=== PATIENT | male | born 1990 | race Caucasian/White ===

== ENCOUNTER 2022-12-30 15:46 | Emergency (ER) | payer SELFPAY ==
[2022-12-30 15:50] VITALS: BP 109/66; PULSE 74; RESP 18; TEMP 36.9; O2SAT 98
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
[2022-12-30] MEDS: KETOROLAC TROMETHAMINE 30 MG/ML VIAL IVP (16:54)
[2022-12-30] MEDS: METHYLPREDNISOLONE SOD SUCC PF 125 MG/2 ML VIAL IVP (16:55)
[2022-12-30] MEDS: OXYCODONE HCL/ACETAMINOPHEN 5MG/325MG 2 TAB PO (18:10)
== END 2022-12-30 18:10 | disposition home or self-care (01) ==
PROVIDERS: Emergency Provider Emergency Medicine
DX: S22.41XA Multiple fractures of ribs, right side, initial encounter for closed fracture (principal); S27.2XXA Traumatic hemopneumothorax, initial encounter; V86.59XA Driver of other special all-terrain or other off-road motor vehicle injured in nontraffic accident, initial encounter; F17.210 Nicotine dependence, cigarettes, uncomplicated
CPT/HCPCS: 71250; 96374; 96375; 99285; J2930